=== PATIENT | male | born 1980 | race Caucasian/White ===

== ENCOUNTER 2017-04-30 08:06 | Day surgery (SDC) | payer BC ==
[~2017-04-30 08:06] MED LIST: LIDOCAINE W/ SODIUM BICARB 0.5 ML SYR ONE; Lactated Ringers 1,000 ML PRIMARY IV ONE; fentaNYL Inj 100 MCG/2 ML VIAL ONE
--- NOTE | 2017-04-30 09:24 | GEN.OPNOTE ---
Colonoscopy Procedure Note Surgery Date: 04/30/17 Preoperative Diagnosis: Bright red blood per rectum. Painful bowel movements. Family history of colon cancer. Postoperative Diagnosis: Same. Posterior anal fissure. Normal colonoscopy. Procedure: Complete colonoscopy. Surgeon: Bryan Cuello MD Anesthesia Provider: Gordy Dickey CRNA Anesthesia Type: MAC Indications: See preoperative diagnosis. Findings: Prep : [Excellent] Cecum : [Normal] Ascending : [Normal] Transverse : [Normal] Sigmoid : [Normal] Rectum : [Normal] Digital Rectal Exam : [Normal] Anoscopy:[Posterior anal fissure] A lubricated flexible colonoscope was inserted and passed to the blind end of the cecum. The appendiceal orifice, ileocecal valve, and napaimute's foot were all clearly seen. Air was aspirated as the scope was withdrawn. The entire colonoscopy was normal without polyp, tumor, neoplastic mass, infectious or inflammatory process. The scope was withdrawn completing the procedure. A bivalved anoscope was inserted. There was a posterior anal fissure. It was small. It was not chronic in nature. The patient tolerated all aspects of the procedure well without complication. He was taken to outpatient surgery in stable condition. Recommend follow-up colonoscopy at age 47 with his family history of colon cancer. We'll recommend 1% cortisone cream twice a day for a week. He should then be off it for a week. During that time he could use an antibiotic ointment or Desitin. We will recommend 30 g of soluble fiber daily. He should avoid straining at the stool.
[2017-04-30 09:50] VITALS: RESP 12
[2017-04-30 10:39] VITALS: TEMP 97.5
== END 2017-04-30 09:57 | disposition home or self-care (01) ==
LOC: SDSC 08:06
PROVIDERS: ATTEND Surgery
DX: K62.5 Hemorrhage of anus and rectum (principal); Z80.0 Family history of malignant neoplasm of digestive organs; K60.2 Anal fissure, unspecified
CPT/HCPCS: 45378; J2704; J3010; J7120